=== PATIENT | male | born 1980 | race Caucasian/White ===

== ENCOUNTER 2017-03-08 11:54 | Emergency (ER) | payer OTHER ==
[~2017-03-08] VITALS: Ht 188 cm; Wt 90.0 kg
[~2017-03-08 11:54] MED LIST: CYCL5TAB PO; NAPR-576 PO
[2017-03-08 11:55] VITALS: BP 140/90; PULSE 92; RESP 20; TEMP 97.8; O2SAT 97
--- NOTE | 2017-03-08 12:02 | PD ---
Physical Exam Time Seen by Provider: 12:01 Narrative 36 y/o male with 2 weeks L foot pain after an injury. Vital signs reviewed. seen at triage desk. Awaiting bed placement. Data Data Last Documented VS Vital Signs Date Time Temp Pulse Resp B/P Pulse Ox O2 Delivery O2 Flow Rate FiO2 03/08/17 11:55 97.8 92 20 140/90 97 Room Air MDM Medical Record Reviewed: Yes Supervised Visit with TOM: Ankit Pacheco Mar 08, 2017 12:02
[2017-03-08] MEDS ORDERED: IBUP800T23 PO (12:19)
--- NOTE | 2017-03-08 12:19 | PD ---
HPI Chief Complaint: Injury Time Seen by Provider: 12:13 Travel History International Travel<30 days: No Contact w/Intl Traveler<30days: No Traveled to known affect area: No History of Present Illness HPI 36-year-old male presents to the emergency Department with complaint of left foot pain 2 weeks after stepping down hard on cement and during his foot. Denies paresthesias, loss of sensation, decreased range of motion, decreased activity affected extremity. Has been ambulatory on the affected extremity. Says his foot is swollen. Fever, vomiting. Has been taking ibuprofen, elevating, and applying ice for symptom management. Has no other medical complaints. Allergies to aluminum sulfate. No other modifying factors or associated signs and symptoms. PFSH Past Medical History Diminished Hearing: No Hypertension: Yes Resp. Syncytial Virus (RSV): Yes Immunizations Current: Yes Social History Alcohol Use: Yes Tobacco Use: Yes (OCC) Substance Use: No Allergies-Medications (Allergen,Severity, Reaction): Coded Allergies: Aluminum Sulfate (Verified Allergy, Mild, HIVES, 03/08/17) Reported Meds & Prescriptions Reported Meds & Active Scripts Active Ibuprofen 800 Mg Tab 800 Mg PO Q6HR PRN Review of Systems Except as stated in HPI: all other systems reviewed are Neg Physical Exam Narrative GENERAL: Well-nourished, well-developed male patient, in no acute distress SKIN: Warm and dry. HEAD: Atraumatic. Normocephalic. EYES: Pupils equal and round. ENT: Mucosa pink and moist. NECK: Supple. Trachea midline. CARDIOVASCULAR: Regular rate. RESPIRATORY: No accessory muscle use. GASTROINTESTINAL: Flat. MUSCULOSKELETAL: Left foot with tenderness to the distal metatarsal area over the second, third, fourth metatarsal area; foot with minimal edema; without erythema; no obvious deformity. Left lower extremity supple and non-tense with 2+ pedal pulses and sensory intact and without erythema or edema. No obvious deformities. No clubbing. No cyanosis. No edema. NEUROLOGICAL: Awake and alert. Oriented 3. No obvious cranial nerve deficits. Motor grossly within normal limits. Normal speech. Moves all extremities. 5/5 strength to all extremities. PSYCHIATRIC: No delusional thought processes. No hallucinations. Data Data Last Documented VS Vital Signs Date Time Temp Pulse Resp B/P Pulse Ox O2 Delivery O2 Flow Rate FiO2 03/08/17 11:55 97.8 92 20 140/90 97 Room Air Orders Foot, Complete ([id number]) (03/08/17 12:05) Ice/Cold Pack (03/08/17 12:19) Crutches (03/08/17 12:19) Splint Or Brace Apply/Monitor (03/08/17 13:16) MDM Medical Decision Making Medical Screen Exam Complete: Yes Emergency Medical Condition: Yes Medical Record Reviewed: Yes Differential Diagnosis Foot sprain, foot injury, foot fracture Narrative Course 36-year-old male with left foot injury from 2 weeks ago. I offered the patient a pain medication and he declined at this time. Ice pack ordered. Left foot x- ray ordered. 1313: Left foot x-ray concludes; There is a nondisplaced acute fracture of the distal second metatarsal neck. Posterior short splint ordered and applied. Crutches provided for support. Ibuprofen prescribed for home. Instructed patient follow-up with podiatry. Instructed patient to follow up with primary care provider. Patient verbalizes understanding and agreement with treatment plan. Patient is medically cleared and stable for discharge. Discussed reasons to return to the emergency department. Patient agrees with treatment plan. The patients vital signs are stable and the patient is stable for outpatient follow-up and treatment. Patient discharged home, stable and in no acute distress. Diagnosis Primary Impression: Foot fracture, left Qualified Code: S92.902A - Foot fracture, left, closed, initial encounter Referrals: Ira Jay DPM [employer] Primary Care Physician Patient Instructions: Crutch Instructions (ED), Foot Fracture in Adults (ED), General Instructions Departure Forms: Tests/Procedures, Work Release Special Instructions: Unable to work until cleared by research laboratory technician or Primary care provider. Additional Instructions: Tylenol or ibuprofen as directed and as needed for pain and inflammation Rest, ice, compress, and elevate extremity to decrease pain and inflammation Splint for support; do not remove splint until he follow-up with podiatry and the splint is cleared Do not bear weight until you follow-up with podiatry and are given further instructions Crutches for support Avoid aggravating activity; increase activity as tolerated Follow-up with primary care provider Follow-up with podiatry Return to the emergency department immediately with worsening of symptoms Med/Other Pt SpecificInfo: Prescription(s) given Scripts Ibuprofen 800 Mg [id number] Mg PO Q6HR PRN (PAIN) #30 TAB Ref 0 Prov:Juliet Cosby 03/08/17 Disposition: 01 DISCHARGE HOME Condition: Stable Juliet Cosby Mar 08, 2017 12:19
--- NOTE | 2017-03-08 13:12 | RADRPT ---
EXAM DATE/TIME: 03/08/2017 12:17 [facility] COMPARISON: No previous studies available for comparison. INDICATIONS : Left foot pain, bent foot back on concrete. MEDICAL HISTORY : None. SURGICAL HISTORY : None. ENCOUNTER: Initial ACUITY: 1 week PAIN SCORE: 9/10 LOCATION: Left lateral foot FINDINGS: 3 views of the left leg demonstrates a nondisplaced acute fracture of the distal second metatarsal ne ck in the metaphyseal region. Lisfranc joint appears intact. No other fracture or dislocation is iden tified. There is a normal variant of the navicular bone representing os tibialis externum. No soft ti ssue abnormality is identified. CONCLUSION: There is a nondisplaced acute fracture of the distal second metatarsal neck. Forrest Paredes MD on March 08, 2017 at 13:08 Board Certified Radiologist. This report was verified electronically.
== END 2017-03-08 13:49 | disposition home or self-care (01) ==
LOC: NEPK 11:54
DX: S92.325A Nondisplaced fracture of second metatarsal bone, left foot, initial encounter for closed fracture (principal); R50.9 Fever, unspecified; R11.10 Vomiting, unspecified; I10 Essential (primary) hypertension; W22.8XXA Striking against or struck by other objects, initial encounter; Z72.0 Tobacco use
CPT/HCPCS: 29515; 73630; 99283; E0113

== ENCOUNTER 2017-04-26 00:05 | Emergency (ER) | payer OTHER ==
[~2017-04-26 00:05] MED LIST changes: -CYCL5TAB PO; +IBUP800T23 PO; -NAPR-576 PO
[2017-04-26 00:08] VITALS: BP 135/95; PULSE 84; RESP 15; TEMP 98.1; O2SAT 98
--- NOTE | 2017-04-26 01:02 | PD ---
HPI Chief Complaint: Injury Time Seen by Provider: 00:58 Travel History International Travel<30 days: No Contact w/Intl Traveler<30days: No Traveled to known affect area: No History of Present Illness HPI 36-year-old male with history of left foot fracture, presents to emergency department for evaluation of left second toe pain after striking his foot against a concrete wall. Patient is concerned she may have broken it again. Reports pain, 6 out of 10, dull, aching, constant. States it is exacerbated with ambulation. Denies any alteration sensations. He has no other symptoms to report. PFSH Past Medical History Diminished Hearing: No Hypertension: Yes Resp. Syncytial Virus (RSV): Yes Immunizations Current: Yes Past Surgical History Surgical History: No Previous Surgery Social History Alcohol Use: Yes Tobacco Use: Yes (OCC) Substance Use: No Allergies-Medications (Allergen,Severity, Reaction): Coded Allergies: aluminum (Unverified Allergy, Mild, HIVES, 04/26/17) benzocaine (Unverified Allergy, Mild, HIVES, 04/26/17) methylene blue (Unverified Allergy, Mild, HIVES, 04/26/17) urea (Unverified Allergy, Mild, HIVES, 04/26/17) Reported Meds & Prescriptions Reported Meds & Active Scripts Active Ibuprofen 800 Mg Tab 800 Mg PO Q6HR PRN Review of Systems Except as stated in HPI: all other systems reviewed are Neg Physical Exam Narrative GENERAL: Well-nourished, well-developed patient in no acute distress SKIN: Focused skin assessment warm/dry. HEAD: Normocephalic. EYES: No scleral icterus. No injection or drainage. NECK: Supple, trachea midline. No JVD or lymphadenopathy. CARDIOVASCULAR: Regular rate and rhythm without murmurs, gallops, or rubs. RESPIRATORY: Breath sounds equal bilaterally. No accessory muscle use. GASTROINTESTINAL: Abdomen soft, non-tender, nondistended. MUSCULOSKELETAL: No cyanosis or mild edema of the left second toe with moderate ecchymosis of the toe. Sensation intact distal affected digit. Cap refill within normal limits. No obvious deformity. BACK: Nontender without obvious deformity. No CVA tenderness. Data Data Last Documented VS Vital Signs Date Time Temp Pulse Resp B/P (MAP) Pulse Ox O2 Delivery O2 Flow Rate FiO2 04/26/17 00:08 98.1 84 15 135/95 (108) 98 Room Air Orders Orders Foot, Complete ([id number]) (04/26/17 00:57) Ibuprofen (Motrin) (04/26/17 01:15) Splint Or Brace Apply/Monitor (04/26/17 01:17) MDM Medical Decision Making Medical Screen Exam Complete: Yes Emergency Medical Condition: Yes Medical Record Reviewed: Yes Differential Diagnosis Fracture versus sprain versus contusion versus dislocation Narrative Course 36-year-old male presents to the emergency department for evaluation a left second toe pain. X-ray imaging confirms no acute bony abnormality. On care. He agrees to return immediately with any acute worsening of symptoms. Last Impressions Foot X-Ray 04/26/17 0057 Signed Impressions: Service Date/Time: April 00:53 - CONCLUSION: Spurring of the calcaneus and degenerative changes involving the midfoot. No acute abnormality. Anoop Trivedi Jr., MD Diagnosis Primary Impression: Toe contusion Qualified Codes: S90.122A - Contusion of left lesser toe(s) without damage to nail, initial encounter Referrals: Primary Care Physician Patient Instructions: Foot Contusion (ED), General Instructions Additional Instructions: Ice to the affected area Sharif tape for comfort and support Tylenol or ibuprofen as directed on the package as needed for pain Follow-up with primary care provider Return immediately with any acute worsening of symptoms Med/Other Pt SpecificInfo: No Change to Meds Disposition: 01 DISCHARGE HOME Condition: Stable WinslowCarissa cummins KESHAWN Apr 26, 2017 01:02
[2017-04-26] MEDS ORDERED: IBUPROFEN 800 MG TAB PO ONE (01:15)
--- NOTE | 2017-04-26 01:17 | RADRPT ---
EXAM DATE/TIME: 04/26/2017 00:53 [facility] COMPARISON: FOOT LEFT COMPLETE ([id number]), March 08, 2017, 12:17. INDICATIONS : Left foot pain. Patient states an injury over one month ago and kicked a wall today and reinjured it. MEDICAL HISTORY : Left foot fracture. SURGICAL HISTORY : None. ENCOUNTER: Initial ACUITY: 1 day PAIN SCORE: 7/10 LOCATION: Left foot. FINDINGS: Three view examination of the left foot demonstrates no soft tissue swelling, dislocation, or fractur e. Old trauma involving the second metatarsal head. Degenerative changes involve the mid foot. Spurri ng of the calcaneus. The tarsal bones appear intact. The interphalangeal and metatarsophalangeal tisha ints are intact. The calcaneus is intact. Bony mineralization is normal. CONCLUSION: Spurring of the calcaneus and degenerative changes involving the midfoot. No acute abnormality. Anoop Trivedi Jr., MD on April 26, 2017 at 1:14 Board Certified Radiologist. This report was verified electronically.
== END 2017-04-26 01:51 | disposition home or self-care (01) ==
LOC: NEPD 00:05
DX: S90.122A Contusion of left lesser toe(s) without damage to nail, initial encounter (principal); W22.09XA Striking against other stationary object, initial encounter; I10 Essential (primary) hypertension
CPT/HCPCS: 73630; 99283

== ENCOUNTER 2017-11-30 00:01 | Emergency (ER) | payer OTHER ==
[~2017-11-30] VITALS: Ht 188 cm; Wt 88.0 kg
[~2017-11-30 00:01] MED LIST changes: +IBUP1TAB7 PO; -IBUP800T23 PO
[2017-11-30 00:03] VITALS: BP 149/87; PULSE 107; RESP 18; TEMP 98.2; O2SAT 96
[2017-11-30] MEDS ORDERED: MEDR4PAK PO (00:24)
--- NOTE | 2017-11-30 00:24 | PD ---
HPI Chief Complaint: Musculoskeletal Complaint Time Seen by Provider: 00:12 Travel History International Travel<30 days: No Contact w/Intl Traveler<30days: No Traveled to known affect area: No History of Present Illness HPI The patient is a 37-year-old male who presents to the emergency department for right shoulder pain. The patient has a history of bursitis in the right shoulder, developed increasing right shoulder pain earlier today. The patient states the pain is located under the right clavicle, occasionally radiates down the lateral aspect of the right arm, is worse with certain movements. He denies any trauma to the right upper extremity. He is right- hand dominant. He denies any numbness, tingling, or paresthesias to the right upper extremity. He denies any redness or swelling of the affected area. He does not currently have a primary physician. Symptoms are mild to moderate. PFSH Past Medical History Diminished Hearing: No Hypertension: Yes Medical other: Yes (Bursitits) Resp. Syncytial Virus (RSV): Yes Immunizations Current: Yes Past Surgical History Surgical History: No Previous Surgery Social History Alcohol Use: Yes Tobacco Use: Yes (OCC) Substance Use: No Allergies-Medications (Allergen,Severity, Reaction): Coded Allergies: aluminum (Unverified Allergy, Mild, HIVES, 04/26/17) benzocaine (Unverified Allergy, Mild, HIVES, 04/26/17) methylene blue (Unverified Allergy, Mild, HIVES, 04/26/17) urea (Unverified Allergy, Mild, HIVES, 04/26/17) Reported Meds & Prescriptions Reported Meds & Active Scripts Active Ibuprofen 800 Mg Tab 800 Mg PO Q6HR PRN Review of Systems Except as stated in HPI: all other systems reviewed are Neg General / Constitutional: No: Fever HENT: No: Neck Pain Cardiovascular: No: Chest Pain or Discomfort Respiratory: No: Shortness of Breath Gastrointestinal: No: Nausea Musculoskeletal: Positive: Limited ROM, Pain Skin: No Rash Neurologic: No: Paresthesia, Sensory Disturbance Physical Exam Narrative GENERAL: Awake, alert, nontoxic-appearing 37-year-old male who appears his stated age and is in no acute respiratory distress. SKIN: Focused skin assessment warm/dry. HEAD: Atraumatic. Normocephalic. EYES: No injection or drainage. ENT: No nasal bleeding or discharge. Mucous membranes pink and moist. NECK: Trachea midline. No JVD. No tenderness of the paravertebral muscles. No tenderness over the trapezius.e. MUSCULOSKELETAL: Patient has tenderness over the anterior and posterior aspect of the shoulder under the acromioclavicular joint. The patient is able to extend and abduct the shoulder, limited abduction secondary to pain. Passive internal/external rotation of the shoulder produces mild pain. Positive right radial pulse. Patient is able to fully flex and extend the right elbow as well as the right wrist. Right intrinsic hand muscles are intact. Positive right radial pulse. NEUROLOGICAL: Awake and alert. No obvious cranial nerve deficits. Motor grossly within normal limits. Normal speech. Sensation is intact to the median , radial, and ulnar distribution of the right hand. PSYCHIATRIC: Appropriate mood and affect; insight and judgment normal. Data Data Last Documented VS Vital Signs Date Time Temp Pulse Resp B/P (MAP) Pulse Ox O2 Delivery O2 Flow Rate FiO2 11/30/17 00:03 98.2 107 18 149/87 (107) 96 Orders Orders Ketorolac Inj (Toradol Inj) (11/30/17 00:30) Ed Discharge Order (11/30/17 00:18) MDM Medical Decision Making Medical Screen Exam Complete: Yes Emergency Medical Condition: Yes Medical Record Reviewed: Yes Differential Diagnosis Differential diagnosis includes bursitis, labrum tear, rotator cuff muscle injury, radiculopathy, acromioclavicular separation, sprain, strain. Narrative Course The patient appears to have bursitis the right shoulder, he does have a history of similar symptoms with previous diagnosis of bursitis and denies any acute trauma. No indication for acute x-ray. 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 He is advised to follow- up with an orthopedic physician for definitive management if symptoms persist. Diagnosis Primary Impression: Bursitis of right shoulder Patient Instructions: General Instructions Additional Instructions: Medication as directed. Follow-up with a primary physician and/or orthopedic physician. Rest and/or ice as needed to the affected area. Return if symptoms worsen or progress. Med/Other Pt SpecificInfo: Prescription(s) given Scripts Methylprednisolone Dosepak (Medrol Dosepak) 4 Mg Dspk 4 MG PO DIRECTED, #1 DSPK 0 Refills Per Pharmacist direction Prov: Mj Rios MD 11/30/17 Disposition: 01 DISCHARGE HOME Condition: Stable Mj Rios MD Nov 30, 2017 00:24
[2017-11-30] MEDS ORDERED: KETOROLAC TROMETHAMINE 60 MG/2 ML (IM) VIAL IM ONE (00:30)
== END 2017-11-30 00:48 | disposition home or self-care (01) ==
LOC: NEPC 00:01
DX: M75.51 Bursitis of right shoulder (principal)
CPT/HCPCS: 96372; 99283; J1885